=== PATIENT | female | born 1995 | race Caucasian/White ===

== ENCOUNTER 2021-05-11 20:21 | Emergency (ER) | payer OTHER, SELFPAY ==
[2021-05-11 20:30] VITALS: BP 113/61; PULSE 73; RESP 17; TEMP 36.7; O2SAT 98; BMI 32.9
[2021-05-11] MEDS: Ibuprofen 600 MG TABLET PO (22:01)
--- NOTE | 2021-05-11 22:07 | PC.NURSE ---
PT WAS UPSET BECOUSE SHE WANTED A FULL DIAGNOSTIC WORK UP DONE ON HER TOP OF SCHWARTZ SMALL BUMP NOTED 1 IN LONG 2MM WIDE NO REDNESS AND NO SWELLING NOTED . PT WAS UPSET SHE WANTED TO NO WHY SHE COUGH UP BROWN MUCOUS AFTER SHE SMOKED WEED WITH PAPER SEVERAL TIME A DAY AND WAS ANGRY AND FELT LIKE SHE WAS BEING DISMISSED LS CLEAR BILATERAL. PT AREA OF LEG CLEANED AND ASPIRATED BY DR. DHILLON NO FLUID DRAINED BAND AID APPLIED.
--- NOTE | 2021-05-11 23:20 | ED_ITS ---
HPI - General Adult General Chief complaint: General Medical Stated complaint: lump on calve Time Seen by Provider: 05/11/21 21:37 Source: patient Mode of arrival: ambulatory Limitations: no limitations History of Present Illness HPI narrative: Patient with multiple complaints complaining of small painful lump on the right hargrove for last 2 weeks complaining of cough with brown sputum smoking marijuana no shortness of breath no fever denies any history of insect bite Related Data Previous Rx's Medication Instructions Recorded ibuprofen 600 mg tablet 600 mg PO Q6H PRN #20 tab 05/11/21 Allergies Allergy/AdvReac Type Severity Reaction Status Date / Time No Known Allergies Allergy Verified 05/11/21 20:30 Review of Systems Review of Systems: Yes all other systems are reviewed and are negative PMFSH Past Medical History Medical History Anxiety Lyme disease Uses control Social History Social History Advance Directives: No Patient : No Physical Exam Vital Signs: Vital Signs: Last Vital Signs Temp 98.0 F 05/11/21 20:30 Pulse 73 05/11/21 20:30 Resp 17 05/11/21 20:30 BP 113/61 05/11/21 20:30 Pulse Ox 98 05/11/21 20:30 Body Mass Index 32.9 Appearance: Alert. Oriented X3. No acute distress. ENT: Pharynx normal. Oral Mucosa moist Neck: Normal inspection. Neck supple. CVS: Normal heart rate and rhythm. Pulses normal. Respiratory: No respiratory distress. Equal air entry bilateral, no wheezing/rales/rhonchi Abdomen: Soft and nontender. Skin: Skin warm and dry. Normal skin color. Normal skin turgor. Extremities: No lower extremity edema. No calf tenderness ,small 2 x 2 cm indurated area on shoe lower part of the right hargrove without signs of infection Neuro: Oriented X 3. Medical Decision Making MDM Narrative Medical decision making narrative: Patient with multiple complaints asking to rule out cancer, needle aspiration of the swelling reveals small amount of blood no pus patient assured that swelling is non infectious need only anti- inflammatory medication Discharge Plan Discharge Clinical Impression: Contusion of right lower leg Qualifiers: Encounter type: initial encounter Qualified Code(s): S80.11XA - Contusion of right lower leg, initial encounter Patient Disposition: Home, Self-Care Instructions: Contusion in Adults (ED) Additional Instructions: Local care as advised Take anti-inflammatory ibuprofen for inflammation Prescriptions: New ibuprofen 600 mg tablet 600 mg PO Q6H PRN (Reason: pain) Qty: 20 RF: 0 Interventions: ED Discharge Assessment Last Done: 05/11/21 22:16 Discharge Date/Time: 05/11/21 22:26
== END 2021-05-11 22:26 | disposition home or self-care (01) ==
PROVIDERS: Emergency Provider Internal Medicine
DX: S80.11XA Contusion of right lower leg, initial encounter (principal); M79.661 Pain in right lower leg; F12.90 Cannabis use, unspecified, uncomplicated; X58.XXXA Exposure to other specified factors, initial encounter; Y93.9 Activity, unspecified; Y92.9 Unspecified place or not applicable; Y99.9 Unspecified external cause status; Z79.899 Other long term (current) drug therapy
CPT/HCPCS: 99283; 99284

== ENCOUNTER 2021-05-19 15:07 | Emergency (ER) | payer OTHER, SELFPAY ==
[2021-05-19 15:32] VITALS: BP 130/86; PULSE 77; RESP 16; TEMP 36.8; O2SAT 98; BMI 32.9
[2021-05-19 19:29] VITALS: BP 139/80; PULSE 68; RESP 17; TEMP 36.9; O2SAT 100
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
[2021-05-19 20:09] LABS: OBS Int Ctl Valid YES; OBS1 NEGATIVE (NEGATIVE)
[2021-05-19 20:51] VITALS: BP 133/83; PULSE 56; RESP 17; O2SAT 100
== END 2021-05-19 20:55 | disposition home or self-care (01) ==
PROVIDERS: Nurse Practitioner Family; Emergency Provider Emergency Medicine Emergency Medical Services
DX: S13.4XXA Sprain of ligaments of cervical spine, initial encounter (principal); S29.012A Strain of muscle and tendon of back wall of thorax, initial encounter; S06.0X9A Concussion with loss of consciousness of unspecified duration, initial encounter; G44.309 Post-traumatic headache, unspecified, not intractable; V43.52XA Car driver injured in collision with other type car in traffic accident, initial encounter; Y93.9 Activity, unspecified; Y92.410 Unspecified street and highway as the place of occurrence of the external cause; Y99.9 Unspecified external cause status; Z79.899 Other long term (current) drug therapy
CPT/HCPCS: 82272; 99284

== ENCOUNTER → 2021-11-13 13:06 | Outpatient (BNVA) | payer OTHER, SELFPAY | PROVIDERS: Visit Provider Advanced Practice Midwife ==

== ENCOUNTER → 2021-11-28 13:08 | Outpatient (BNVA) | payer OTHER, SELFPAY | PROVIDERS: Visit Provider Advanced Practice Midwife | DX: Z30.46 Encounter for surveillance of implantable subdermal contraceptive (principal) | CPT/HCPCS: 11982 ==

== ENCOUNTER 2022-01-09 13:53 | Outpatient (REF) | payer OTHER, SELFPAY ==
[2022-01-10 03:12] LABS: CT PCR NOT DETECTED (Not Detect.); NG PCR NOT DETECTED (Not Detect.)
== END 2022-01-09 13:54 | disposition home or self-care (01) ==
LOC: HO.LAB 13:53
PROVIDERS: Visit Provider Advanced Practice Midwife
DX: Z01.419 Encounter for gynecological examination (general) (routine) without abnormal findings (principal); Z11.3 Encounter for screening for infections with a predominantly sexual mode of transmission
CPT/HCPCS: 81025; 87491; 87591; 88142

== ENCOUNTER → 2022-02-13 11:29 | Outpatient (BNVA) | payer OTHER, SELFPAY | PROVIDERS: Visit Provider Advanced Practice Midwife | DX: R87.612 Low grade squamous intraepithelial lesion on cytologic smear of cervix (LGSIL) (principal); Z71.2 Person consulting for explanation of examination or test findings ==

== ENCOUNTER 2022-02-26 20:28 | Emergency (ER) | payer OTHER, SELFPAY ==
--- NOTE | 2022-02-26 | ECG_ITS ---
Test Reason : cp Blood Pressure : / mmHG Vent. Rate : 087 BPM Atrial Rate : 087 BPM P-R Int : 136 ms QRS Dur : 088 ms QT Int : 384 ms P-R-T Axes : 044 044 023 degrees QTc Int : 462 ms Normal sinus rhythm Non specific T wave changes noted No previous ECGs available Referred By: Generic ED Physician Electronically Signed By:CECILIA HAMILTON MD
[2022-02-26 20:45] VITALS: BP 143/87; PULSE 75; RESP 18; TEMP 37.1; O2SAT 98; BMI 35.4
[2022-02-26 20:48] LABS: MANUAL DIFF FLAG NO
[2022-02-26 20:49] LABS: Basophils Percent Auto 0.3 % (0-2); Eosinophils Absolute Auto 0.2 X10*3/uL (0.0-0.4); Eosinophils Percent Auto 1.7 % (0-4); Hematocrit 36.8 % (37.0-47.0); Hemoglobin 13.2 g/dl (12.0-16.0); Imm Gran Abs Auto 0.01 X10*3/uL (0.00-0.03); Imm Gran Pct Auto 0.1 % (0.0-0.4); Lymphocytes Absolute Auto 2.8 X10*3/uL (1.2-4.9); Lymphocytes Percent Auto 28.3 % (20-40); Mean Corpuscular HGB Conc 35.9 g/dl (31.0-35.0); Mean Corpuscular Hemoglobin 30.8 pg (27.0-33.0); Mean Platelet Volume 9.9 fL (9.4-12.3); Monocytes Absolute Auto 0.7 X10*3/uL (0.1-1.2); Monocytes Percent Auto 7.3 % (2-11); Neutrophils Absolute Auto 6.2 x10*3/uL (2.0-8.3); Neutrophils Percent Auto 62.3 % (45-73); Platelet Count 298 X10*3/uL (160-400); Red Blood Count 4.28 X10*6/uL (4.20-5.50); Red Cell Distribution Width 11.7 % (11.0-16.0); White Blood Count 9.9 X10*3/uL (4.8-10.8)
[2022-02-26 21:04] LABS: Alanine Aminotransferase 36 U/L (0-31); Albumin Level 4.3 g/dL (3.5-5.0); Alkaline Phosphatase 86 U/L (39-117); Anion Gap 13 (12-20); Aspartate Amino Transferase 29 U/L (5-31); Bilirubin Total 0.5 mg/dL (0.0-1.0); Blood Urea Nitrogen 5 mg/dL (9-16); Calcium 8.5 mg/dL (8.4-10.2); Carbon Dioxide 22 mmol/L (22-29); Chloride 107 mmol/L (96-108); Creatinine Clr Calc Pharmacy 126.6; Estimated Glomerular Filt Rate > 60; Glucose Random 110 mg/dL (60-115); Potassium 3.8 mmol/L (3.3-5.1); Sodium 138 mmol/L (135-145); Total Protein 6.9 g/dL (6.5-8.0)
[2022-02-26 21:08] LABS: Troponin-I High Sensitivity < 3.5 ng/L (<3.5-17.0)
[2022-02-26 22:08] VITALS: BP 132/82; PULSE 78; RESP 16; O2SAT 100
--- NOTE | 2022-02-26 22:39 | ED.CHESTPAIN ---
HPI - Chest Pain General Chief Complaint: Chest Pain Stated Complaint: Chest pain Time Seen by Provider: 02/26/22 22:39 History of Present Illness HPI narrative: 26 yo female presents with chest tightness/pain beginning at 17:30, she reports this is not the first episode in recent months and usually attributes this to her anxiety. She reports the chest tightness/pain is worse with inspiration and radiates to her left arm and belly intermittently. Nothing seems to make the pain better and stress makes it worse. Patient denies history of sudden cardiac in the family, no personal or family history of cardiac disease. Denies shortness of breath, fevers, chills, nausea, vomiting, abdominal pain MD complaint: chest pain Onset (ago): hour(s) (5) Timing of current episode: constant Prior episodes: Yes Onset: during rest Pain location: substernal Pain radiation: left arm and abdomen Severity: mild Quality: tightness Relieving factors: nothing Exacerbating factors: stress Risk Factors Thoracic aortic dissection risk factors: none Pulmonary embolism risk factors: morbid obesity Related Data On Oral Contraceptives: No Home Medications Medication Instructions Recorded Confirmed sertraline 25 mg tablet 25 mg PO DAILY 01/09/22 Allergies Allergy/AdvReac Type Severity Reaction Status Date / Time No Known Allergies Allergy Verified 02/13/22 11:30 Review of Systems Constitutional: Constitutional: Reports as per HPI Eyes: Eyes: Reports as per HPI ENT: Reports system reviewed and no additional complaints, except as documented Cardiovascular: Cardiovascular: Reports chest pain Respiratory: Respiratory: Reports as per HPI and Reports pain on inspiration Gastrointestinal: Gastrointestinal: Reports as per HPI Genitourinary: Genitourinary: Reports no additional female genitourinary complaints Musculoskeletal: Musculoskeletal: Reports no additional musculoskeletal complaints Integumentary/Breasts: Skin/Breast: Reports system reviewed and no additional complaints, except as docu Neurologic: Reports system reviewed and no additional complaints, except as documented Psychiatric: Psychiatric: Reports anxiety Comments: Major life stressors include 3 year old child, recent notice reguarding armed services, and work stress. Endocrine: Endocrine: Reports no additional endocrine complaints Hematologic/Lymphatic: Hematologic/Lymphatic: Reports no additional hematologic/lymphatic complaints Allergic/Immunologic: Allergic/Immunologic: Reports no additional allergic/immunologic complaints PMFSH Past Medical History Attestation statement: The following information was validated with the patient. Source: old records reviewed and nursing notes reviewed Medical History Anxiety History of abnormal cervical Pap smear Lyme disease Family History Family History Mother Cervical cancer Sister Cervical cancer Social History Social History Alcohol intake: current Alcohol intake frequency: a few times a month Patient Tobacco Use Status: Never used Tobacco Substance Use Type: Marijuana Advance Directives: No Advance Directives Information Provided: No Physical Exam Vital Signs: Vital Signs: Last Vital Signs Temp 98.7 F 02/26/22 20:45 Pulse 68 02/26/22 23:14 Resp 16 02/26/22 23:14 BP 136/85 02/26/22 23:14 Pulse Ox 99 02/26/22 23:14 O2 Del Method 02/26/22 23:14 BMI result Body Mass Index 35.4 vss Appearance: Alert.? Oriented X3.? No acute distress.? Head: Normocephalic, atraumatic, no step-offs or deformities Eyes: Pupils equal, round and reactive to light.? Neck: Normal inspection.? Neck supple.? CVS: Normal heart rate and rhythm.? Pulses normal.? Respiratory: No respiratory distress.? Breath sounds normal.? Abdomen: Soft and nontender.? Skin: Skin warm and dry.? Normal skin color.? Normal skin turgor.? Extremities: No lower extremity edema.? No calf ttp. 5/5 strength to bilateral upper and lower extremities Neuro: Oriented X 3.? No motor deficit.? No sensory deficit. Course Reevaluation(s) Reevaluation #1: CBC within normal limits. Chemistry with no acute electrolyte abnormalities requiring intervention. Troponin negative, EKG nonischemic. Unlikely ACS. Dimer pending Time: 23:14 Reevaluation #2: D-dimer negative. Unlikely that this is a PE. MDM - Chest Pain MDM Narrative Medical decision making narrative: 2299 26-year-old female history of anxiety presents with chest pain, she thinks it might have been a panic attack. Denies shortness of breath. Physical examination benign Plan at this time is labs, EKG, D-dimer. Low suspicion for ACS, PE. Likely anxiety. Medical Records Data Attestation: I reviewed the patient's medical records. Lab Data Attestation: I reviewed the patient's lab results. Result diagrams: 02/26/22 20:43 02/26/22 20:43 Labs: Lab Results 02/26/22 02/26/22 02/26/22 Range/Units 20:43 20:43 20:43 WBC 9.9 (4.8-10.8) X10*3/uL RBC 4.28 (4.20-5.50) X10*6/uL Hgb 13.2 (12.0-16.0) g/dl Hct 36.8 L (37.0-47.0) % MCV 86.0 (80.0-98.0) fL MCH 30.8 (27.0-33.0) pg MCHC 35.9 H (31.0-35.0) g/dl RDW 11.7 (11.0-16.0) % Plt Count 298 (160-400) X10*3/uL MPV 9.9 (9.4-12.3) fL Immature Gran % (Auto) 0.1 (0.0-0.4) % Neut % (Auto) 62.3 (45-73) % Lymph % (Auto) 28.3 (20-40) % [place]mort[place] % (Auto) 7.3 (2-11) % Eos % (Auto) 1.7 (0-4) % Baso % (Auto) 0.3 (0-2) % Lymph # (Auto) 2.8 (1.2-4.9) X10*3/uL [place] # (Auto) 0.7 (0.1-1.2) X10*3/uL Eos # (Auto) 0.2 (0.0-0.4) X10*3/uL Baso # (Auto) 0.0 (0.0-0.2) X10*3/uL Abs Immat Gran (auto) 0.01 (0.00-0.03) X10*3/uL Absolute Neuts (auto) 6.2 (2.0-8.3) x10*3/uL Absolute Nucleated RBC 0.000 (0.0-0.012) X10*3/uL Nucleated RBC % (auto) 0.0 (0.0-0.2) /100WBC D-Dimer High Sensitivty NG/ML Sodium 138 (135-145) mmol/L Potassium 3.8 (3.3-5.1) mmol/L Chloride 107 (96-108) mmol/L Carbon Dioxide 22 (22-29) mmol/L Anion Gap 13 (12-20) BUN 5 L (9-16) mg/dL Creatinine 0.70 (0.5-1.4) mg/dL Estim Creat Clear Calc 126.6 Estimated GFR > 60 Random Glucose 110 (60-115) mg/dL Calcium 8.5 (8.4-10.2) mg/dL Total Bilirubin 0.5 (0.0-1.0) mg/dL AST 29 (5-31) U/L ALT 36 H (0-31) U/L Alkaline Phosphatase 86 (39-117) U/L Troponin I High Sens < 3.5 (<3.5-17.0) ng/L Total Protein 6.9 (6.5-8.0) g/dL Albumin 4.3 (3.5-5.0) g/dL 02/26/22 Range/Units 23:04 WBC (4.8-10.8) X10*3/uL RBC (4.20-5.50) X10*6/uL Hgb (12.0-16.0) g/dl Hct (37.0-47.0) % MCV (80.0-98.0) fL MCH (27.0-33.0) pg MCHC (31.0-35.0) g/dl RDW (11.0-16.0) % Plt Count (160-400) X10*3/uL MPV (9.4-12.3) fL Immature Gran % (Auto) (0.0-0.4) % Neut % (Auto) (45-73) % Lymph % (Auto) (20-40) % [place]morton % (Auto) (2-11) % Eos % (Auto) (0-4) % Baso % (Auto) (0-2) % Lymph # (Auto) (1.2-4.9) X10*3/uL [place] # (Auto) (0.1-1.2) X10*3/uL Eos # (Auto) (0.0-0.4) X10*3/uL Baso # (Auto) (0.0-0.2) X10*3/uL Abs Immat Gran (auto) (0.00-0.03) X10*3/uL Absolute Neuts (auto) (2.0-8.3) x10*3/uL Absolute Nucleated RBC (0.0-0.012) X10*3/uL Nucleated RBC % (auto) (0.0-0.2) /100WBC D-Dimer High Sensitivty < 150 NG/ML Sodium (135-145) mmol/L Potassium (3.3-5.1) mmol/L Chloride (96-108) mmol/L Carbon Dioxide (22-29) mmol/L Anion Gap (12-20) BUN (9-16) mg/dL Creatinine (0.5-1.4) mg/dL Estim Creat Clear Calc Estimated GFR Random Glucose (60-115) mg/dL Calcium (8.4-10.2) mg/dL Total Bilirubin (0.0-1.0) mg/dL AST (5-31) U/L ALT (0-31) U/L Alkaline Phosphatase (39-117) U/L Troponin I High Sens (<3.5-17.0) ng/L Total Protein (6.5-8.0) g/dL Albumin (3.5-5.0) g/dL ECG Data ECG #1: Attestation: I personally reviewed and interpreted this ECG as follows: ECG interpretation date: 02/26/22 ECG interpretation time: 23:39 Prior ECG tracings: not available for review Interpretation: Ventricular rate of 87, RI normal, QRS normal, QT/QTC normal. EKG shows normal sinus rhythm no ST elevations or inversions concerning for ischemia. No previous EKGs to compare with Critical Care Time Critical Care Time Critical Care Time: No Discharge Plan Discharge Clinical Impression: Chest pain not due to acute coronary syndrome Patient Disposition: Home, Self-Care Instructions: Chest Pain (ED), Chest Wall Pain (ED) Additional Instructions: Take your medications as prescribed. If you were prescribed antibiotics today, it is important that you take your medication to their entirety, do not skip any doses, do not finish them early. Follow-up with your primary care provider this week. Follow-up with cardiology as necessary in 2-3 weeks. Return to the emergency department with new or worsening symptoms. Such as fevers, chills, chest pain, shortness of breath, nausea, vomiting, dizziness, headache, vision changes, lethargy In case of emergency call 911 Your laboratory studies were reassuring, your D-dimer screening test for blood clot was negative, your EKG looked good. Please follow-up with your PCP. Prescriptions: No Action sertraline 25 mg tablet 25 mg PO DAILY Referrals: Ministerio Boyd MD [Physician] - 2 weeks Physician,Ailin J [Primary Care Provider] - 2 days Stand Alone Forms: Work/School Release Interventions: ED Discharge Assessment Last Done: 02/26/22 23:45
[2022-02-26 23:14] VITALS: BP 136/85; PULSE 68; RESP 16; O2SAT 99
[2022-02-26 23:22] LABS: D Dimer High Sensitivity < 150 NG/ML
== END 2022-02-26 23:46 | disposition home or self-care (01) ==
PROVIDERS: Physician Assistant; Emergency Provider Internal Medicine
DX: R07.89 Other chest pain (principal); M79.602 Pain in left arm; Z79.899 Other long term (current) drug therapy
CPT/HCPCS: 36415; 80053; 84484; 85025; 85379; 93005; 99284